=== PATIENT | male | born 2000 | race Caucasian/White ===

== ENCOUNTER 2021-10-20 12:29 | Emergency (ER) | payer BC ==
[~2021-10-20] VITALS: Ht 188 cm; Wt 163.6 kg
[~2021-10-20 12:29] MED LIST: ZITHROMAX250 MG OR
[2021-10-20] MEDS ORDERED: NAPROXEN500 MG PO (13:40)
[2021-10-20 13:50] VITALS: BP 127/78
== END 2021-10-20 14:20 | disposition home or self-care (01) | DRG 563 ==
LOC: ED 12:29
DX: S83.92XA Sprain of unspecified site of left knee, initial encounter (principal); V28.0XXA Motorcycle driver injured in noncollision transport accident in nontraffic accident, initial encounter
CPT/HCPCS: L1830

== ENCOUNTER 2022-10-19 06:26 | Emergency (ER) | payer OTHER ==
[2022-10-19] VITALS (10 sets, daily range): BP systolic 109–130; BP diastolic 70–79
[~2022-10-19] VITALS: Ht 188 cm; Wt 158.2 kg
[~2022-10-19 06:26] MED LIST changes: +NAPROXEN500 MG PO
[2022-10-19] MEDS ORDERED: OMEPRAZOLE20 MG PO (07:26)
[2022-10-19 08:41] LABS: BASO% 0.1 % (0-3); EOS% 0.2 % (0-8); IMMATURE GRANULOCYTES 0.7 % (0.0-5.0); LYMPH% 3.5 % (15-41); MEAN CELL VOLUME 77.8 fL CALC (80.0-100.0); MEAN CORPUSCULAR HGB 24.7 pG CALC (26.0-32.0); MEAN CORPUSCULAR HGB CONC 31.7 g/dL CAL (32.0-36.0); MONO% 3.5 % (2-13); NEUT# 10.66 thou/uL (1.82-7.42); RED BLOOD COUNT 6.16 mill/uL (4.70-6.10); RED CELL DISTRI WIDTH 13.5 % (11.5-15.5)
[2022-10-19 08:43] LABS: C-REACTIVE PROTEIN 2.6 mg/dL (0-0.9)
[2022-10-19 08:48] LABS: HEMATOCRIT 47.9 % (39.0-50.0); HEMOGLOBIN 15.2 g/dl (14.0-18.0)
[2022-10-19 09:11] LABS: TSH, 3RD GENERATION 1.31 uIU/mL (0.47 - 4.68)
[2022-10-19] MEDS ORDERED: ZOFRAN4 MG/TAB PO (14:43)
[2022-10-19] MEDS ORDERED: PROTONIX40 M2 PO (14:43)
== END 2022-10-19 14:30 | disposition home or self-care (01) ==
LOC: ED 06:26
PROVIDERS: Family Medicine
DX: K29.70 Gastritis, unspecified, without bleeding (principal); K29.80 Duodenitis without bleeding
CPT/HCPCS: S0164